=== PATIENT | female | born 1990 | race Caucasian/White ===

== ENCOUNTER 2019-05-12 18:13 | Emergency (ER) | payer BC ==
[2019-05-12 18:54] VITALS: TEMP 98.3; BMI 34.3
--- NOTE | 2019-05-12 19:05 | PDOC ---
History of Present Illness - General Chief Complaint: Syncope/Near Syncope Stated Complaint: SYNCOPE Time Seen by Provider: 05/12/19 19:04 History Source: Patient Exam Limitations: No Limitations - History of Present Illness Initial Comments: 05/12/19 19:04 Paula Acevedo is an otherwise healthy 28F with PMH anxiety presenting with 2x syncopal episodes 3 hours [employer]. Patient was taking a nap today when she was awakened by leg cramps. When getting out of bed, she passed out and fell backwards into a seated position, was caught by her fiance at the bedside and did not hit her head, unconscious for ~30 seconds before awakening. Crawled to toilet, then passed out for another 30 seconds while urinating, per fiance was unresponsive to voice, nodding to the right, and shaking, denies tongue-biting or tonic/clonic movements. Called for EMS after second event. Patient says before passing out she felt a warm flush and dizziness, denies chest pain or shortness of breath. Denies recent head trauma, nausea, vomiting. 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 Has a headache, but is no different than the same chronic headache she has at baseline. Has fainted in the past, prior episodes related to food poisoning and anxiety attacks. Takes daily venlafaxine for anxiety, has not taken PRN Xanax. Denies personal or family history of cardiac or seizure disorders. Denies alcohol/tobacco/drug use. LMP 3 weeks ago, possibility she is , has mild BLQ cramping. Past History - Past Medical History Allergies/Adverse Reactions: Allergies Allergy/AdvReac Type Severity Reaction Status Date / Time Penicillins Allergy Verified 05/12/19 18:28 COPD: No Psychiatric Problems: Yes (anxiety) - Psycho Social/Smoking Cessation Hx Smoking History: Never smoked Have you smoked in the past 12 months: No Information on smoking cessation initiated: No Hx Alcohol Use: No Drug/Substance Use Hx: No Review of Systems - Review of Systems Able to Perform ROS?: Yes Constitutional: No: Chills, Fever, Loss of Appetite, Malaise, Weakness HEENTM: No: Eye Pain, Blurred Vision, Ear Discharge, Hearing Loss Respiratory: No: Cough, Shortness of Breath, Stridor, Wheezing Cardiac (ROS): Yes: Syncope. No: Chest Pain, Irregular Heart Rate, Lightheadedness, Palpitations, Chest Tightness ABD/GI: Yes: Abdominal cramping. No: Constipated, Diarrhea, Nausea, Vomiting : No: Burning, Dysuria, Discharge, Frequency, Flank Pain, Hematuria, Incontinence Musculoskeletal: No: Joint Pain, Neck Pain Integumentary: No: Symptoms Reported Neurological: Yes: Headache. No: Numbness, Paresthesia, Seizure, Tremors, Weakness, Unsteady Gait Psychiatric: Yes: Anxiety Endocrine: No: Symptoms Reported Hematologic/Lymphatic: No: Symptoms Reported All Other Systems: Reviewed and Negative *Physical Exam - Vital Signs Last Vital Signs Temp Pulse Resp BP Pulse Ox 98.3 F 90 18 120/70 97 05/12/19 18:27 05/12/19 18:27 05/12/19 18:27 05/12/19 18:27 05/12/19 18:27 - Physical Exam General Appearance: Yes: Nourished, Appropriately Dressed, Obese. No: Apparent Distress HEENT: positive: EOMI, VISHAL, Normal Voice, Symmetrical, Pharynx Normal, Hearing Grossly Normal. negative: Scleral Icterus (R), Scleral Icterus (L), Pharyngeal Erythema, Tonsillar Exudate, Tonsillar Erythema, Sinus Tenderness Neck: positive: Trachea midline, Normal Thyroid, Supple. negative: Tender, Lymphadenopathy (R), Lymphadenopathy (L) Respiratory/Chest: positive: Lungs Clear, Normal Breath Sounds. negative: Chest Tender, Respiratory Distress, Accessory Muscle Use, Crackles, Rales, Rhonchi, Stridor, Wheezing Cardiovascular: positive: Regular Rhythm, Tachycardia Vascular Pulses: Dorsalis-Pedis (R): 2+, Doralis-Pedis (L): 2+ Gastrointestinal/Abdominal: positive: Normal Bowel Sounds, Flat, Soft. negative : Tender, Distended, Guarding, Rebound, Tenderness Musculoskeletal: positive: Normal Inspection. negative: CVA Tenderness Extremity: positive: Normal Capillary Refill, Normal Inspection, Normal Range of Motion, Pelvis Stable. negative: Tender Integumentary: positive: Normal Color, Dry, Warm. negative: Cold, Clammy Neurologic: positive: supervisor malted milk II-XII NML intact, Fully Oriented, Alert, Normal Mood/ Affect, Normal Response, Motor Strength 5/5, Other (able to stand unassisted, gait normal. Sensation grossly intact to LT all extremities, motor 5/5 all groups.). negative: Numbness ED Treatment Course - LABORATORY CBC & Chemistry Diagram: 05/12/19 20:30 05/12/19 20:30 Medical Decision Making - Medical Decision Making 05/12/19 19:04 Paula Acevedo is an otherwise healthy 28F with PMH anxiety presenting with 2x syncopal episodes 3 hours [employer]. Patient is well-appearing and in no acute distress at this time. Patient presentation concerning for a cardiac cause of syncope, including dysarrhythmia. VA vs. PE vs. SAH less likely given VS stable, complete lack of SOB or CP. Seizure disorder less likely, no recent trauma, no FH, no substance abuse. Has chronic BERNARDO but not worse today. Most likely etiology is vagal- mediated syncope. Evaluating via: CMP CBC serum ECG giving 1L NS for hydration, UA/UC ECG shows NSR, HR 99 QTc 449, no evidence of ischemic changes, T wave changes, or dysrhythmia. 05/12/19 22:09 Labs notable for: WBC elevated to >18, no steroid use recently UA shows no evidence of UTI AP elevated to 138, not concerning at this time No electrolyte abnormalities notable Patient re-assessed, has LLQ tenderness, VS stable. Getting CXR for r/o PNA as cause of WBC elevation Getting TVUS for evaluation of ovarian torsion vs. TOA 05/12/19 22:43 2cm L ovarian cyst CXR shows no acute abnormalities on prelim read 05/12/19 22:51 Patient feels tired, but otherwise doing well. Spoke to patient regarding symptoms and follow-up with PMD. Will discharge home with PMD f/u once IVF done. Discharge - Discharge Information Problems reviewed: Yes Clinical Impression/Diagnosis: Syncope and collapse Condition: Stable - Admission No - Follow up/Referral - Patient Discharge Instructions Patient Printed Discharge Instructions: DI for Syncope in Adults (Fainting) Additional Instructions: Today you were evaluated for a few episodes of fainting. Your blood labs do not show any evidence of anemia or electrolyte abnormalities, but you do have evidence of a mild infection. Your ECG does not show any evidence of heart disease, your urine does not show evidence of infection, and your chest X-ray does not show signs of pneumonia. You infection is likely viral and does not need antibiotics at this time. You fainting is likely due to dehydration or getting out of bed too quickly, and this is a common and non-concerning phenomenon that does not require urgent care at this time, but you should follow-up with your primary doctor in the future. Please follow-up with your primary doctor in the next 3 days, and your [employer]IST[employer] as scheduled. If you experience more episodes of fainting, chest pain, SOB, abdominal pain, seizures, or any other new or concerning symptoms, please return to the closest emergency room. - Post Discharge Activity
[2019-05-12] MEDS ORDERED: SODIUM CHLORIDE 0.9% 500 ML INFUS.BAG IV ONE (19:32)
[2019-05-12 20:47] LABS: BASO % 0.2 % (0-2.0); EOS % 0.4 % (0-4.5); HEMATOCRIT 41.9 % (32.4-45.2); HEMOGLOBIN 13.6 GM/dL (10.7-15.3); LYMPH % 10.2 % (8-40); MCH 27.9 pg (25.7-33.7); MCHC 32.5 g/dl (32.0-36.0); MEAN CELL VOLUME 85.8 fl (80-96); MEAN PLT VOLUME 6.8 fl (7.5-11.1); MONO % 4.6 % (3.8-10.2); NEUT % 84.6 % (42.8-82.8); PLATELET COUNT 366 K/MM3 (134-434); RBC 4.89 M/mm3 (3.60-5.2); RDW 13.5 % (11.6-15.6); WHITE BLOOD COUNT 18.4 K/mm3 (4.0-10.0)
[2019-05-12 20:50] LABS: PH,URINE 7.5 (5.0-8.0); URINE APPEARANCE CLEAR; URINE BILIRUBIN NEGATIVE (NEGATIVE); URINE COLOR YELLOW; URINE GLUCOSE (UA) NEGATIVE (NEGATIVE); URINE KETONE NEGATIVE (NEGATIVE); URINE LEUK ESTERASE NEGATIVE (NEGATIVE); URINE NITRITE NEGATIVE (NEGATIVE); URINE PROTEIN NEGATIVE (NEGATIVE); URINE UROBILINOGEN 0.2 mg/dL (0.2-1.0)
--- NOTE | 2019-05-12 20:50 | PDOC ---
Documentation entered by Alejandra Luna SCRIBE, acting as scribe for Raz Pandey MD. Raz Pandey MD: This documentation has been prepared by the Cheryl wilson Adrianna, SCRIBE, under my direction and personally reviewed by me in its entirety. I confirm that the documentation accurately reflects all work, treatment, procedures, and medical decision making performed by me. Attending Attestation - Resident Resident Name: CliftonoraliaUlices - ED Attending Attestation I have performed the following: I have examined & evaluated the patient, The case was reviewed & discussed with the resident, I agree w/resident's findings & plan, Exceptions are as noted - HPI HPI: 28 y.o F, with PMH of anxiety, presenting s/p witnessed syncopal episodes. Patient felt legs cramps earlier this afternoon while at rest, so she got out of bed, felt dizzy, and passed out for ~30seconds. Patients fiance lowered her to the ground, so she did not hit her head. Patient went to the bathroom after the episode to urinate, and passed out once more while sitting on the toilet so her fiance called EMS. Allergies: Penicillins Surgical History: None reported Social History: Denies EtOH, tobacco, or illicit drug use - Physicial Exam PE: 05/12/19 20:48 Patient is awake and alert, well nourished, in no distress Normocephalic and atraumatic PERRLA, EOMI, conjunctivae pink No carotid bruits CTA RRR + llq ttp No lower extremity edema 05/12/19 21:10 - Medical Decision Making 05/12/19 20:49 Patient is a well-appearing 28-year-old female who presents with 2 episodes of syncope witnessed by her fianc. In the ER, patient is awake and alert, afebrile, well-appearing. No focal neurological deficits are noted. EKG reveals no evidence of acute ischemia or dysrhythmia. Will obtain CBC/CMP/ serum test. Will hydrate. Will reassess. Likely discharge. 05/12/19 23:00 Patient reassessed. Patient is resting comfortably and is currently pain-free. CBC reveals leukocytosis of 18,000 with predominance of neutrophils. Chest x- ray reveals no evidence of infiltrate or effusion. Urinalysis reveals no evidence of pyuria. There are no cutaneous lesions consistent with cellulitis and no evidence of pyelonephritis. Serial abdominal exams at this time reveal no focal tenderness on deep palpation. Will complete IV normal saline infusion and will discharge with outpatient follow-up.
[2019-05-12 21:11] LABS: ALBUMIN 3.9 g/dl (3.4-5.0); BILIRUBIN,TOTAL 0.2 mg/dL (0.2-1); BLOOD UREA NITROGEN 12.1 mg/dL (7-18); CALCIUM 9.5 mg/dL (8.5-10.1); CREATININE 0.7 mg/dL (0.55-1.3); POTASSIUM 4.1 mmol/L (3.5-5.1); TOT PROT 7.4 g/dl (6.4-8.2)
[2019-05-12 23:44] VITALS: BP 115/72; PULSE 90
--- NOTE | 2019-05-13 14:53 | EKG ---
Test Reason : Blood Pressure : / mmHG Vent. Rate : 099 BPM Atrial Rate : 099 BPM P-R Int : 124 ms QRS Dur : 102 ms QT Int : 350 ms P-R-T Axes : 055 051 004 degrees QTc Int : 449 ms NORMAL SINUS RHYTHM POSSIBLE LEFT ATRIAL ENLARGEMENT NONSPECIFIC ST AND T WAVE ABNORMALITY ABNORMAL ECG NO PREVIOUS ECGS AVAILABLE Confirmed by ESTHELA GUERRERO MD ([id number]) on 05/13/2019 2:52:46 PM Referred By: Confirmed By:ESTHELA GUERRERO MD
== END 2019-05-12 23:44 | disposition home or self-care (01) ==
LOC: JER 18:13
DX: R55 Syncope and collapse (principal); N83.202 Unspecified ovarian cyst, left side; F41.9 Anxiety disorder, unspecified; Z88.0 Allergy status to penicillin
CPT/HCPCS: 36415; 71046-TC-FY; 76830-TC; 80053; 81003; 84703; 85025; 87086; 87804; 93005; 93010; 99284-25